=== PATIENT | female | born 1955 | race Caucasian/White ===

== ENCOUNTER 2020-10-03 08:27 | Day surgery (SDC) | payer OTHER ==
[2020-10-03 09:04] VITALS: TEMP 97.8; BMI 31.1
[2020-10-03 10:23] VITALS: BP 126/64; PULSE 76
== END 2020-10-03 10:29 | disposition home or self-care (01) ==
LOC: FASU-ENDO 08:27 → EDBD 08:30 → FASU-ENDO 10:29
PROVIDERS: ATTEND Internal Medicine Gastroenterology
PROC: 0DB68ZX Excision of Stomach, Via Natural or Artificial Opening Endoscopic, Diagnostic (ICD-10-PCS; 2020-10-03)
PROC: 0DB98ZX Excision of Duodenum, Via Natural or Artificial Opening Endoscopic, Diagnostic (ICD-10-PCS; principal; 2020-10-03 09:37)
DX: R10.13 Epigastric pain (principal); K29.50 Unspecified chronic gastritis without bleeding; B96.81 Helicobacter pylori [H. pylori] as the cause of diseases classified elsewhere
CPT/HCPCS: 88305-TC; 88342-TC